=== PATIENT | male | born 1935 | race Caucasian/White ===

== ENCOUNTER 2019-07-10 05:44 | Observation (INO) ==
[2019-07-10] MEDS ORDERED: LIDOCAINE HCL 1% 20 ML VIAL ONE (07:29)
[2019-07-10] MEDS ORDERED: BUPIVACAINE 0.25% 30 ML VIAL ONE (07:30)
[2019-07-10] MEDS ORDERED: BACITRACIN INJ 50,000 UNIT VIAL ONE (07:30)
--- NOTE | 2019-07-10 08:05 | Pre Anesthesia Assessment ---
Date of Service July 10, 2019 Pre Sedation Assessment Vital Signs Temp Pulse Resp BP Pulse Ox 07/10/19 06:59 36.6 C 56 L 16 132/63 96 Cardiovascular RRR, no murmur, no edema Respiratory normal respiratory effort, lungs clear to auscultation Pre-Sedation Airway Assessment Smoking Status: Never smoker Hx Sleep Apnea: No Short, Thick Neck: No Thyromental Distance: > or= 3.5 Finger Breadths Oral Cavity: + Dentures and + Dental Abnormalities Mallampati Class: III ASA: ASA3 NPO Status Date of Last Intake of Fluids: 07/10/19 Time of Last Intake of Fluids: 16:30 Date of Last Intake of Solid Food: 07/09/19 Time of Last Intake of Solid Foods: 16:30 Procedure Planning Contraindications for Sedation: none Current Medications Reviewed: Yes Notes The planned sedation has been discussed with the patient. Informed Consent was obtained. I have identified the patient, determined the appropriateness of sedation and have assessed the patient immediately prior to the procedure. All medicine(s) and interventions are by my order.
--- NOTE | 2019-07-10 08:05 | History & Physical Bridge Note ---
Date of Service July 10, 2019 History & Physical Bridge Note I have examined the patient, reviewed the History & Physical and in the interval since the performance of the History & Physical I have noted the following changes of clinical significance: no changes noted
[2019-07-10] MEDS ORDERED: fentaNYL citrate 100 MCG/2 ML VIAL ONE ×2 (08:15→09:11)
[2019-07-10] MEDS ORDERED: MIDAZOLAM HCL 5 MG/ML 1 ML VIAL ONE (08:15)
[2019-07-10] MEDS ORDERED: CEFAZOLIN 250 MG/ML 1 GM VIAL ONE (08:15)
[2019-07-10] MEDS ORDERED: OXYCODONE/ACETAMINOPHEN 5mg/325mg TAB PO PRN (09:44)
[2019-07-10] MEDS ORDERED: ACETAMINOPHEN 325 MG TAB PO PRN (09:44)
[2019-07-10] MEDS ORDERED: ACETAMINOPHEN 500 MG TAB PO PRN (09:45)
[2019-07-10] MEDS ORDERED: WARFARIN SOD 2 MG TAB PO SCH ×2 (09:45→16:00)
[2019-07-10] MEDS ORDERED: NITROGLYCERIN SL 0.4 MG/TAB TAB SL PRN (09:45)
[2019-07-10 11:25] LABS: INR 1.9 (0.9-1.1); Prothrombin Time 18.6 Seconds (9.0-12.0)
--- NOTE | 2019-07-10 11:46 | Discharge Summary ---
Date of Service July 10, 2019 Admission HPI Per Admitting Provider pt admitted for ICM for elective ICD Admission Exam Per Admitting Provider aaox3, NAD NC/AT, EOMI Supple No JVD irregular/irregular S1/S2, +systolic murmur CTA b/l no w/r/r soft nt/nd no LE edema b/l skin intact no focal deficits Principal Diagnosis ICM s/p ICD Discharge Exam aaox3, NAD NC/AT, EOMI Supple No JVD irregular/irregular S1/S2, +systolic murmur CTA b/l no w/r/r soft nt/nd no LE edema b/l skin intact no focal deficits left pectoral incision intact, no hematoma mild ecchymosis ENMT Mallampati Class: III Respiratory normal respiratory effort, lungs clear to auscultation Cardiovascular RRR, no murmur, no edema Discharge Data Allergies Allergy/AdvReac Type Severity Reaction Status Date / Time No Known Allergies Allergy Verified 07/10/19 07:26 Procedures Performed Operation Date: 07/10/19 08:00 Actual Procedures p ICD Insertion Single or Dual - Cesia Burrell DO s Venogram, Unilateral - Cesia Burrell DO Ordered Studies CXR: No PTX, leads in position ECG: AF in the 50s ICD Interrogation: Normal function and stable lead testing since implant 07/10/19 06:58 CL Cath Imgs for PACS use only Routine Hospital Course (1) Ischemic cardiomyopathy: (2) Atrial fibrillation: (3) CAD (coronary artery disease): Total Time Total Time Spent Total Time Spent (In Minutes): 30 Total Time Includes: Examination of the Patient, Discharge Planning, Medication Reconciliation and Other Discharge Plan Discharge Items Reason For Visit: Ischemic Cardiomyopathy Discharge Diagnosis: ICM s/p Single chamber ICD Activity: As commented below Activity Comment: do not lift the left elbow over the left shoulder for 1 month Lifting: No more than 10 pounds Lifting Comment: do not lift more than 10 pounds with the left arm for 2 weeks Bathing: Keep incision dry Bathing Comment: can shower in 2 days let water run over the incision do not scrub it Call non-emergency contact if: you have any medication questions Follow-up/Referrals: Marianela Majano MD [Primary Care Provider] - Addtl Attending Provider Instructions: leave the pressure dressing on for 2 days leave the white dressing on if possible until wound check Pending Studies at Discharge: No Stand-Alone Forms: My [facility] Medications and DC Order Prescriptions: Continued atorvastatin 80 mg Tablet 80 mg PO DAILY RF: 0 clopidogrel 75 mg Tablet 75 mg PO DAILY RF: 0 acetaminophen 500 mg Tablet 500 mg PO QID PRN (Reason: pain) RF: 0 allopurinol 300 mg Tablet 450 mg PO DAILY RF: 0 carbidopa-levodopa 25-100 mg Tablet 1 tab PO TID RF: 0 lisinopril 2.5 mg Tablet 2.5 mg PO DAILY RF: 0 coenzyme Q10 200 mg Capsule 200 mg PO DAILY RF: 0 furosemide [Lasix] 40 mg Tablet 20 mg PO DAILY RF: 0 donepezil 5 mg Tablet 5 mg PO HS RF: 0 melatonin 3 mg Tablet 3 mg PO HS PRN (Reason: Insomnia) RF: 0 tamsulosin 0.4 mg Capsule 0.4 mg PO DAILY RF: 0 ferrous sulfate [iron] 325 mg (65 mg iron) Tablet 325 mg PO DAILY RF: 0 warfarin 2 mg Tablet See Rx Instructions .ROUTE .COMPLEX RF: 0 metoprolol tartrate 50 mg Tablet 50 mg PO DAILY RF: 0 nitroglycerin 0.4 mg Tablet, Sublingual 0.4 mg sublingual USEASDIRECTD PRN (Reason: Chest Pain) RF: 0 sertraline 25 mg Tablet 25 mg PO DAILY RF: 0 metformin 500 mg Tablet Extended Release 24 Hr 500 mg PO DAILY RF: 0 colchicine 0.6 mg Capsule 0.6 mg PO DAILY RF: 0 Admission Data Admit Date/Time: 07/10/19 09:07 Attending Provider: Cesia Burrell Admit Provider: Cesia Burrell Primary Care Provider: Marianela Majano
[2019-07-10] MEDS: CARBIDOPA/LEVODOPA 25/100MG TAB PO SCH ×2 (13:52→20:00)
--- NOTE | 2019-07-10 15:39 | Operative Report ---
DATE OF OPERATION: 07/10/2019 PREOPERATIVE DIAGNOSES: Ischemic cardiomyopathy and permanent atrial fibrillation. POSTOPERATIVE DIAGNOSES: Ischemic cardiomyopathy and permanent atrial fibrillation. PROCEDURE: Single chamber rate responsive implantable cardiac defibrillator under fluoroscopic guidance along with peripheral venogram. SURGEON: Ceisa Burrell DO. ASSISTANTS: None. ANESTHESIA: Monitored conscious sedation administered under my supervision by Sis Carreon. Start time 8:28, end time 9:40, a total of 4 mg of Versed, 100 mcg of fentanyl. INTRAVENOUS FLUIDS: 20 mL. IV CONTRAST: 10 mL. ANTIBIOTICS: Two grams of Ancef. BLOOD LOSS: 10 mL. URINE OUTPUT: None. DRAINS: None. FINDINGS: See below. DRAINS: None. INDICATIONS: This is an 84-year-old gentleman with past medical history for ischemic cardiomyopathy, ejection fraction was 20% in 01/2019 and continues to be low in 06/2019 at 34%, coronary artery disease, a history of non-STEMI in 01/2019 with a PCI to the distal LAD, mid LAD and proximal LAD. He has a PARAPROFESSIONAL INTERPRETER of the RCA and a CT of the circumflex and his OM has moderate disease, permanent atrial fibrillation and atrial flutter on metoprolol and Coumadin, CHADS2-VASc score is 5, diabetes, carotid artery stenosis status post left carotid endarterectomy in the past, Parkinson's dementia, chronic kidney disease stage III, history of skin cancer, history of intraventricular hemorrhage in 2017 after a possible syncopal event, hypertension, hyperlipidemia. Due to his ischemic cardiomyopathy, he was recommended a defibrillator. CONSENT: Consent was obtained prior to the patient going into electrophysiology lab. The patient understood, benefits and alternative procedure. Risks include but not limited to sudden cardiac , cardiac arrhythmias, cerebrovascular accident, myocardial infarction, injury to the blood vessels, chamber of the heart, lung, bleeding, and infection. The patient understood these risks and agreed to the procedure as planned. Informed consent was obtained. DESCRIPTION OF THE PROCEDURE: The patient was brought into the electrophysiology lab in a fasting state. After continuous industrial gas fitter, a timeout was performed to ensure patient identity and procedure correctly. The patient was prepped and draped over the left infraclavicular space in normal surgical standard fashion. Monitored conscious sedation was given throughout the procedure for patient's comfort level. Gaston precautions maintained throughout the procedure. 10 mL of 1% lidocaine, bupivacaine mixture were given in the left deltopectoral groove. Incision was made in left deltopectoral groove. Blunt dissection was performed down to identify the cephalic vein. Cephalic vein was identified and nicked with an 11 blade. However, I was having trouble passing the wire and then I made another mihcelle and that ended up being the cephalic artery. So we tied all that off and we did a peripheral venogram using 10 mL of IV contrast diluted in 10 mL of saline followed by 20 mL flush to identify the axillary vein. Axillary venous access was obtained through a needle stick and a guidewire was inserted without any resistance. A 9.5-H[place] sheath was inserted over the guidewire without any resistance. Dilator and guidewire were removed. The defibrillator lead was then advanced into right ventricle and positioned into right ventricular apex under fluoroscopic guidance. There was adequate pacing and sensing thresholds and no diaphragmatic stimulation with high output pacing. The 9.5-[place]er sheath was peeled away and lead was fixated to pectoralis muscle using 0 silk suture. A defibrillator pocket was then created using blunt dissection over the pectoralis muscle within the pectoral fascia. Pocket was flushed with copious amounts of bacitracin saline wash and inspected for hemostasis. I did do a pursestring with a 2-[address] needle at the venous puncture site of the axillary vein to prevent any more backbleeding. Then, the defibrillator was attached to the leads, making sure that the pins were removed, passed set screw and set screws were all tightened. Defibrillator was then placed in antibiotic pouch followed then by being placed in the pocket, making sure that the leads were lying flat beneath the device. The incision was then closed in a 4-layer fashion using 2-0 Vicryl interrupted suture followed by another 2-0 Vicryl interrupted suture, followed by a 3-0 Vicryl interrupted suture followed 4-0 Monocryl running stitch and Dermabond was applied followed then by Edy and micropore cover followed then by a pressure dressing. EQUIPMENT: 1. A Tyrx pouch is reference [id number], lot #[id number], expiration 09/01/2019. The device is a [employer] Bidamon MRI VR SureScan [id number], serial number [id number]. 2. Right ventricular defibrillator lead is a Medtronic 6935M-62 cm, serial number [id number]. INTRAOPERATIVE TESTING: R-wave 6.4 millivolts, impedance 496 ohms, threshold 0.3 volts at 0.5 milliseconds. FINAL MEASUREMENTS THROUGH THE DEVICE: R waves 4.1 millivolts, impedance 399 ohms, threshold 0.5 volts at 0.4 milliseconds. FINAL PARAMETERS: VVI 50/120. Right ventricular amplitude 3.5 volts, pulse width 0.4 milliseconds, sensitivity 0.3 millivolts. VT monitor zone 150 beats per minute for 32 detection intervals, VT zone at 171 beats per minute for 20 detection intervals and VF zone at 200 beats per minute for 30/40 detection interval. IMPRESSION: Successful implantation cardiac defibrillator under fluoroscopic guidance secondary to ischemic cardiomyopathy and permanent atrial fibrillation. PLAN: Monitor patient overnight, 12-lead ECG, chest x-ray. He is not allowed to lift left elbow or left shoulder for 1 month. He cannot lift more than 10 pounds with the left arm for 2 weeks. Continue his home medications and he is to wear the pressure dressing for 2 days and then can shower trying to keep the micropore from dressing on until wound check in the office. The Melonie stat was placed in the pocket. I attest to the content of the Intraoperative Record and any orders documented therein. Any exception s are noted below.
[2019-07-10] MEDS ORDERED: DONEPEZIL HCL 5 MG TAB PO SCH (21:00)
[2019-07-11] MEDS ORDERED: FERROUS SULFATE 325 MG TAB PO SCH (06:30)
--- NOTE | 2019-07-11 06:33 | XRay Report ---
XR chest 2V routine HISTORY: 84 years-old Male post implant status post placement of a left subclavian pacer/AICD COMPARISON: None available TECHNIQUE: PA and lateral views of the chest FINDINGS: The patient is rotated. Displaced and angulated mid right clavicular fracture appears remote. Coronar y arterial stent grafts are noted. Cardiomegaly without overt pulmonary edema. Calcified plaque of th e thoracic aortic arch. Mild interstitial coarsening is possibly on a chronic basis. There is mild bl unting of the costophrenic angles. Left subclavian single lead pacer/AICD is noted with distal tip ov erlying the expected location of the right ventricle. No postprocedural pneumothorax identified. Mild right hemidiaphragmatic elevation. No lobar airspace consolidation. Degenerative changes of the shou lders and spine. IMPRESSION: Status post placement of a single lead left subclavian pacer/AICD. No postprocedural pneu mothorax. The above report was generated using voice recognition software. It may contain grammatical, syntax o r spelling errors. Electronically signed by: Julián Vega M.D. 07/11/2019 6:32 AM
[2019-07-11 07:15] LABS: INR 1.9 (0.9-1.1); Prothrombin Time 18.5 Seconds (9.0-12.0)
[2019-07-11] MEDS ORDERED: METFORMIN HCL ER 500 MG TABCR PO SCH (07:30)
[2019-07-11] MEDS: CARBIDOPA/LEVODOPA 25/100MG TAB PO SCH ×2 (08:10→13:31)
[2019-07-11] MEDS ORDERED: FUROSEMIDE 20 MG TAB PO SCH (09:00)
[2019-07-11] MEDS ORDERED: METOPROLOL TARTRATE 50 MG TAB PO SCH (09:00)
[2019-07-11] MEDS ORDERED: NON-FORMULARY MEDICATION (Coenzyme Q10 200 MG) PO SCH (09:00)
[2019-07-11] MEDS ORDERED: TAMSULOSIN HCL 0.4 MG CAP PO SCH (09:00)
[2019-07-11] MEDS ORDERED: COLCHICINE 0.6 MG TAB PO SCH (09:00)
[2019-07-11] MEDS ORDERED: ATORVASTATIN 40 MG TAB PO SCH (09:00)
[2019-07-11] MEDS ORDERED: SERTRALINE HCL 50 MG TABLET PO SCH (09:00)
[2019-07-11] MEDS ORDERED: allopurinoL 300 MG TAB PO SCH (09:00)
[2019-07-11] MEDS ORDERED: CLOPIDOGREL BISULFATE 75 MG TAB PO SCH (09:00)
[2019-07-13] MEDS ORDERED: WARFARIN SOD 4 MG TAB PO SCH (16:00)
--- NOTE | 2019-07-25 14:48 | Coding Query ---
A supporting diagnosis is required for the test/procedure performed on this patient in order for us to be reimbursed by the patient's insurance. Please provide a supporting diagnosis for the following test/procedure listed below next to the test name along with your signature. *If there is no additional diagnosis for this patient that would support the following test/procedure please document that below next to the test/procedure. Test(s)/Procedure(s) that require a supporting diagnosis: Implantable Cardiac Defibrillator DIAGNOSIS: Ischemic cardiomyopathy Provider Signature: Date: Thank you Nikky Gracia Health Information Management Once completed, please kindly fax back to [phone] For questions please call [phone] JORDYN
== END 2019-07-11 14:43 | disposition home or self-care (01) ==
LOC: EP 05:44 → 2S 05:44